=== PATIENT | female | born 1995 | race Hispanic/Latino ===

== ENCOUNTER 2018-11-03 07:59 | Day surgery (SDC) | payer BC ==
[2018-11-03] MEDS ORDERED: Lactated Ringer's 500 ML IV ONE (08:18)
[2018-11-03 08:22] VITALS: BMI 17.6
[2018-11-03] MEDS ORDERED: Propofol 10 mg/ml Inj (20 ML) ONE (08:53)
[2018-11-03 09:35] VITALS: TEMP 97.7
[2018-11-03 09:36] VITALS: BP 120/83; PULSE 93; RESP 17; O2SAT 100
== END 2018-11-03 10:20 | disposition home or self-care (01) ==
LOC: H.ENDO 07:59
PROVIDERS: ATTEND Internal Medicine Gastroenterology
DX: R10.32 Left lower quadrant pain (principal); Z83.79 Family history of other diseases of the digestive system; K64.8 Other hemorrhoids
CPT/HCPCS: 45378; 88305; J2001; J2704; J3010; J7120